=== PATIENT | male | born 1945 | race Caucasian/White ===

== ENCOUNTER 2017-03-27 15:54 | Inpatient (IN) | payer MEDICARE ==
[~2017-03-27] VITALS: Ht 165.1 cm; Wt 71.1 kg
[2017-03-27 16:13] LABS: GLUCOSE,POINT OF CARE 113 MG/DL (70-110)
[2017-03-27 16:34] LABS: BASOPHILS % (AUTO) 0.4 % (0.0-2.0); EOSINOPHILS % (AUTO) 1.2 % (1.0-6.0); HEMATOCRIT 35.7 % (41-53); HEMOGLOBIN 12.2 g/dL (13.5-17.5); LYMPHOCYTES # (AUTO) 1.4 K/uL (1.0-4.8); LYMPHOCYTES % (AUTO) 18.4 % (22.0-44.0); MEAN CORPUSCULAR HEMOGLOBIN 31.4 pg (26.0-34.0); MEAN CORPUSCULAR HGB CONC 34.3 G/dL (31.0-37.0); MEAN CORPUSCULAR VOLUME 92 fL (80-100); MONOCYTES # (AUTO) 0.5 K/uL (0.1-1.0); MONOCYTES % (AUTO) 6.1 % (2.0-9.0); NEUTROPHILS # (AUTO) 5.8 K/uL (1.8-7.7); NEUTROPHILS % (AUTO) 73.9 % (40.0-70.0); PLATELET COUNT (AUTO) 296 K/uL (150-450); RED CELL DISTRIBUTION WIDTH 13.9 % (11.5-14.5)
[2017-03-27 16:49] LABS: INR 2.7 (0.9-1.1); PROTHROMBIN TIME 28.6 SEC (9.4-11.6)
[2017-03-27 16:57] LABS: ANION GAP 9 mmol/L (8-16); CALCIUM, TOTAL 9.1 mg/dL (8.8-10.5); CARBON DIOXIDE 28 mmol/L (22-29); CHLORIDE 100 mmol/L (98-107); CREATININE 1.69 mg/dL (0.60-1.30); GLOMERULAR FILTR. RATE CALC 40 mL/min (>60); GLUCOSE,RANDOM 113 mg/dL (70-110); POTASSIUM 4.4 mmol/L (3.5-5.1); SODIUM SERUM 137 mmol/L (136-145); UREA NITROGEN, BLOOD 34 mg/dL (7-18)
[2017-03-27 16:58] LABS: B-TYPE NATRIURETIC PEPTIDE 715 pg/mL (0-100)
[2017-03-27 17:21] LABS: ALANINE AMINOTRANSFERASE 33 U/L (12-78); ALBUMIN 2.9 g/dL (3.4-5.0); ALKALINE PHOSPHATASE 63 U/L (46-116); ASPARTATE AMINOTRANSFERASE 28 U/L (15-37); BILIRUBIN,TOTAL 0.5 mg/dL (0.1-1.0); CREATINE KINASE MB 1.8 ng/mL (0-5); CREATINE KINASE, TOTAL 106 U/L (39-308); TOTAL PROTEIN, SERUM 7.1 g/dL (6.4-8.2)
[2017-03-27] MEDS ORDERED: FUROSEMIDE 40 MG/4 ML VIAL IVP ONE (18:15)
[2017-03-27] MEDS ORDERED: NITROGLYCERIN 2% (1 GM=INCH) PACKET TP ONE (18:15)
[2017-03-27 18:36] LABS: APPEARANCE,URINE CLEAR (CLEAR); GLUCOSE, URINE (UA) NEGATIVE (NEGATIVE); KETONES,URINE NEGATIVE (NEGATIVE); LEUKOCYTE ESTERASE ,URINE NEGATIVE (NEGATIVE); NITRATE,URINE NEGATIVE (NEGATIVE); OCCULT BLOOD,URINE NEGATIVE (NEGATIVE); PH,URINE 5.5 (5.0-8.0); PROTEIN,URINE POS 1+ (NEGATIVE)
[2017-03-27 18:39] LABS: BILIRUBIN,URINE PRELIM. POSITIVE (NEGATIVE)
[2017-03-27 18:41] LABS: BACTERIA,URINE None Seen /HPF (None Seen); RBC,URINE None Seen /HPF (0-2); WBC,URINE None Seen /HPF (0-5)
[2017-03-27 19:11] LABS: INFLUENZA TYPE A NEGATIVE FOR TYPE A (NEGATIVE); INFLUENZA TYPE B NEGATIVE FOR TYPE B (NEGATIVE)
[2017-03-27] MEDS ORDERED: DILTIAZEM HCL 5 MG/ML 5 ML VIAL IVP ONE ×2 (19:15→21:30)
[2017-03-27] MEDS ORDERED: DILTIAZEM HCL 125 MG in DEXTROSE 5%-WATER 100 ML IV PRN (19:45)
[2017-03-27 21:12] LABS: GLUCOSE,POINT OF CARE 106 MG/DL (70-110)
[2017-03-27] MEDS ORDERED: LISI10TA7 PO (22:20)
[2017-03-27] MEDS ORDERED: FAMO20TA8 PO (22:20)
[2017-03-27] MEDS ORDERED: METF500T4 PO (22:20)
[2017-03-27] MEDS ORDERED: LORA0.5T83 PO (22:20)
[2017-03-27] MEDS ORDERED: WARF4TAB6 PO (22:20)
[2017-03-27] MEDS ORDERED: METO50 PO (22:20)
[2017-03-27] MEDS ORDERED: ASPI81TA33 PO (22:23)
[2017-03-27] MEDS ORDERED: SIMV40TA5 PO (22:23)
[2017-03-27] MEDS ORDERED: GABA-531 PO (22:23)
[2017-03-27] MEDS ORDERED: NITR.4 SL (22:24)
[2017-03-27] MEDS ORDERED: METH500T PO (22:25)
[2017-03-27] MEDS ORDERED: ISOS60TA4 PO (22:26)
[2017-03-27] MEDS ORDERED: DIGOXIN 250 MCG/ML 2 ML AMP IVP ONE (22:30)
[2017-03-27] MEDS ORDERED: 0.9% SODIUM CHLORIDE 10 ML SYRINGE IVP PRN (22:45)
[2017-03-27] MEDS ORDERED: ACETAMINOPHEN 325 MG TABLET PO PRN (22:45)
[2017-03-27] MEDS ORDERED: ONDANSETRON HCL 4 MG/2 ML VIAL IVP PRN (22:45)
[2017-03-28] VITALS (8 sets, daily range): BP systolic 115–121; BP diastolic 57–72
[2017-03-28] MEDS ORDERED: PNEUMOCOCCAL VACCINE POLYVALENT 0.5 ML VIAL [PPSV23] IM ONE (00:45)
[2017-03-28 05:50] LABS: BASOPHILS % (AUTO) 0.3 % (0.0-2.0); EOSINOPHILS % (AUTO) 1.3 % (1.0-6.0); HEMATOCRIT 36.2 % (41-53); HEMOGLOBIN 12.5 g/dL (13.5-17.5); LYMPHOCYTES # (AUTO) 1.4 K/uL (1.0-4.8); LYMPHOCYTES % (AUTO) 16.1 % (22.0-44.0); MEAN CORPUSCULAR HEMOGLOBIN 31.5 pg (26.0-34.0); MEAN CORPUSCULAR HGB CONC 34.4 G/dL (31.0-37.0); MEAN CORPUSCULAR VOLUME 92 fL (80-100); MONOCYTES # (AUTO) 0.4 K/uL (0.1-1.0); MONOCYTES % (AUTO) 4.5 % (2.0-9.0); NEUTROPHILS # (AUTO) 6.9 K/uL (1.8-7.7); NEUTROPHILS % (AUTO) 77.8 % (40.0-70.0); PLATELET COUNT (AUTO) 298 K/uL (150-450); RED BLOOD CELL COUNT(AUTO) 3.95 MIL/uL (4.50-5.90); RED CELL DISTRIBUTION WIDTH 13.9 % (11.5-14.5)
[2017-03-28] MEDS ORDERED: NITROGLYCERIN 0.4 MG SUBLINGUAL TABLET #25 SL PRN ×2 (06:00→07:45)
[2017-03-28] MEDS ORDERED: LORazepam 0.5 MG TABLET PO PRN (06:00)
[2017-03-28 06:11] LABS: ALBUMIN 2.8 g/dL (3.4-5.0); BILIRUBIN,TOTAL 0.6 mg/dL (0.1-1.0); CREATININE 1.25 mg/dL (0.60-1.30); POTASSIUM 3.8 mmol/L (3.5-5.1)
[2017-03-28] MEDS ORDERED: DILTIAZEM HCL 125 MG in DEXTROSE 5%-WATER 100 ML IV SCH (06:30)
[2017-03-28] MEDS ORDERED: ACETAMINOPHEN 325 MG TABLET PO PRN (07:45)
[2017-03-28] MEDS ORDERED: MORPHINE SULFATE 2 MG/ML SYRINGE IVP PRN (07:45)
[2017-03-28] MEDS ORDERED: HYDROCODONE/ACETAMINOPHEN 5-325 MG TABLET PO PRN (07:45)
[2017-03-28] MEDS ORDERED: METOPROLOL SUCCINATE 25 MG ER TABLET PO SCH (08:00)
[2017-03-28] MEDS ORDERED: *CLINICAL-WARFARIN SODIUM DOSING CLINICAL ONE (08:00)
[2017-03-28] MEDS ORDERED: MetFORMIN HCL 500 MG TABLET PO SCH (08:00)
[2017-03-28] MEDS ORDERED: DEXTROSE 50%-WATER 25 GM/50 ML SYRINGE IVP PRN (08:15)
[2017-03-28] MEDS ORDERED: LISINOPRIL 10 MG TABLET PO SCH (09:00)
[2017-03-28] MEDS ORDERED: ISOSORBIDE MONONITRATE 60 MG ER TABLET PO SCH (09:00)
[2017-03-28 09:18] LABS: CHOL/HDL RATIO 2.9 (4.2-7.3); FREE T4 (FREE THYROXINE) 1.35 ng/dL (0.76-1.46); THYROID STIMULATING HORMONE 1.18 uIU/mL (0.36-3.74)
[2017-03-28] MEDS ORDERED: REGADENOSON 0.4 MG/5 ML PF SYRINGE IVP ONE ×2 (10:56→19:29)
[2017-03-28] MEDS ORDERED: SESTAMIBI TC99M/UD ISOTOPE 1 EA INJ INJ ONE (11:05)
[2017-03-28 11:58] LABS: CREATININE,URINE RANDOM 147.4 mg/dL (30.0-125.0); SODIUM,URINE RANDOM 72 mmol/l (20-110)
[2017-03-28] MEDS ORDERED: METOPROLOL SUCCINATE 50 MG ER TABLET PO SCH (12:00)
[2017-03-28] MEDS: GABAPENTIN 300 MG CAPSULE PO SCH ×2 (12:03→21:35)
[2017-03-28] MEDS: METHOCARBAMOL 500 MG TABLET PO SCH ×3 (12:03→21:38)
[2017-03-28] MEDS: ASPIRIN 81 MG EC TABLET PO SCH (12:03)
[2017-03-28] MEDS: FAMOTIDINE 20 MG TABLET PO SCH (12:03)
[2017-03-28] MEDS: INSULIN ASPART 100 UNITS/ML SQ PRN ×2 (12:07→17:38)
[2017-03-28 15:23] LABS: INR 2.4 (0.9-1.1); PROTHROMBIN TIME 25.9 SEC (9.4-11.6)
[2017-03-28] MEDS: DIGOXIN 250 MCG/ML 2 ML AMP IVP SCH ×2 (16:26→22:29)
[2017-03-28] MEDS: WARFARIN SODIUM 2 MG TABLET PO SCH (17:15)
[2017-03-28] MEDS ORDERED: SIMVASTATIN 40 MG TABLET PO SCH (21:00)
[2017-03-28] MEDS: METOPROLOL SUCCINATE 50 MG ER TABLET PO SCH (21:35)
[2017-03-28] MEDS ORDERED: GuaiFENesin/CODEINE [SUGAR FREE] 200-20MG/10 ML SYRUP UDCUP PO PRN (21:45)
[2017-03-28] MEDS: FUROSEMIDE 20 MG/2 ML VIAL IVP SCH (22:29)
[2017-03-28 23:08] LABS: GLUCOMETER DEV NAME(LOC) 5N 1M; GLUCOSE,POINT OF CARE 162 MG/DL (70-110)
[2017-03-28 23:08] LABS: GLUCOMETER DEV NAME(LOC) 5N 1M; GLUCOSE,POINT OF CARE 139 MG/DL (70-110)
[2017-03-28 23:08] LABS: GLUCOMETER DEV NAME(LOC) 5N 1M; GLUCOSE,POINT OF CARE 144 MG/DL (70-110)
[2017-03-29] VITALS (7 sets, daily range): BP systolic 105–128; BP diastolic 54–82
[2017-03-29 06:29] LABS: GLUCOMETER DEV NAME(LOC) 5N 1M; GLUCOSE,POINT OF CARE 121 MG/DL (70-110)
[2017-03-29 07:14] LABS: INR 2.6 (0.9-1.1); PROTHROMBIN TIME 27.4 SEC (9.4-11.6)
[2017-03-29 07:25] LABS: CALCIUM, TOTAL 9.3 mg/dL (8.8-10.5); CREATININE 1.27 mg/dL (0.60-1.30)
[2017-03-29 07:49] LABS: BASOPHILS # (AUTO) 0.04 K/uL (0.00-0.20); BASOPHILS % (AUTO) 0.6 % (0.0-2.0); EOSINOPHILS # (AUTO) 0.14 K/uL (0.00-0.70); EOSINOPHILS % (AUTO) 2.06 % (1.0-6.0); HEMATOCRIT 39.9 % (41-53); HEMOGLOBIN 13.2 g/dL (13.5-17.5); LYMPHOCYTES # (AUTO) 1.6 K/uL (1.0-4.8); LYMPHOCYTES % (AUTO) 23.4 % (22.0-44.0); MEAN CORPUSCULAR HEMOGLOBIN 30.4 pg (26.0-34.0); MEAN CORPUSCULAR VOLUME 92 fL (80-100); MONOCYTES # (AUTO) 0.3 K/uL (0.1-1.0); MONOCYTES % (AUTO) 4.8 % (2.0-9.0); NEUTROPHILS # (AUTO) 4.7 K/uL (1.8-7.7); NEUTROPHILS % (AUTO) 69.2 % (40.0-70.0); PLATELET COUNT (AUTO) 332 K/uL (150-450); RED BLOOD CELL COUNT(AUTO) 4.33 MIL/uL (4.50-5.90); RED CELL DISTRIBUTION WIDTH 13.7 % (11.5-14.5)
[2017-03-29] MEDS: FUROSEMIDE 20 MG/2 ML VIAL IVP SCH (08:52)
[2017-03-29] MEDS: FAMOTIDINE 20 MG TABLET PO SCH (08:52)
[2017-03-29] MEDS: ASPIRIN 81 MG EC TABLET PO SCH (08:52)
[2017-03-29] MEDS: METOPROLOL SUCCINATE 50 MG ER TABLET PO SCH (08:52)
[2017-03-29] MEDS: GABAPENTIN 300 MG CAPSULE PO SCH (08:52)
[2017-03-29] MEDS: METHOCARBAMOL 500 MG TABLET PO SCH ×2 (08:53→16:32)
[2017-03-29] MEDS ORDERED: METOPROLOL SUCCINATE 50 MG ER TABLET PO ONE (10:15)
[2017-03-29] MEDS: WARFARIN SODIUM 2 MG TABLET PO SCH (16:55)
[2017-03-29] MEDS: INSULIN ASPART 100 UNITS/ML SQ PRN (16:58)
[2017-03-29] MEDS ORDERED: DILTIAZEM HCL 125 MG in DEXTROSE 5%-WATER 100 ML IV SCH (19:06)
[2017-03-30 10:23] LABS: GLUCOMETER DEV NAME(LOC) 5N 1M; GLUCOSE,POINT OF CARE 99 MG/DL (70-110)
[2017-03-30 10:23] LABS: GLUCOMETER DEV NAME(LOC) 5N 1M; GLUCOSE,POINT OF CARE 123 MG/DL (70-110)
== END 2017-03-29 19:30 | disposition left against medical advice (07) | DRG 291 ==
LOC: EMS 15:54 → 5N 20:18
PROVIDERS: ADMIT Hospitalist; ATTEND Hospitalist
DX: I13.0 Hypertensive heart and chronic kidney disease with heart failure and stage 1 through stage 4 chronic kidney disease, or unspecified chronic kidney disease (principal); I50.31 Acute diastolic (congestive) heart failure; E11.22 Type 2 diabetes mellitus with diabetic chronic kidney disease; I48.2 Chronic atrial fibrillation; N18.3 Chronic kidney disease, stage 3 (moderate); R07.9 Chest pain, unspecified; E78.00 Pure hypercholesterolemia, unspecified; I25.10 Atherosclerotic heart disease of native coronary artery without angina pectoris; K21.9 Gastro-esophageal reflux disease without esophagitis; E78.5 Hyperlipidemia, unspecified; Z98.61 Coronary angioplasty status; Z79.899 Other long term (current) drug therapy; Z79.82 Long term (current) use of aspirin; Z79.01 Long term (current) use of anticoagulants; Z79.84 Long term (current) use of oral hypoglycemic drugs
CPT/HCPCS: 76770; 78452; 82570; 82962; 84300; 84439; 84443; 87804; 89050; 93005; 93017; 93306; 96365; 96366; 96375; 99285; A9500; J1160; J1940; J2785; J3490; J7060